=== PATIENT | female | born 1940 | race African-American/Black ===

== ENCOUNTER → 2016-07-25 | Outpatient (CLI) | payer OTHER ==
[~2016-07-25] MED LIST: ADALAT CC90 MG PO; BONIVA150 MG PO; BYSTOLIC 5 MG5 M1 PO; CARVEDILOL25 MG; CLONIDINE0.1 PO; COLACE100 MG PO; COREG CR20 MG PO; COZAAR 25 MG TA25 M1 PO; COZAAR 50 MG TA50 M1; FLOMAX0.4 MG PO; FLONASE 0.05%50 MCG NASAL; HYDRALAZINE 2525 MG PO; IRON325 PO; KAPVAY0.1 MG; LASIX 20 MG TAB20 MG PO; MIRALAX17 GM PO; NORVASC5 MG PO; PERCOCET 10-321 EACH PO; SENNA LAXATIVE8.6 MG PO; TRAMADOL 50 MG50 MG PO; VITAMINC500 PO; XARELTO10 MG PO; ZOCOR 20 MG TAB20 M1 PO
== END ==
LOC: RAD 01:46
DX: Z12.31 Encounter for screening mammogram for malignant neoplasm of breast (principal)

== ENCOUNTER 2017-01-09 16:35 | Inpatient (IN) | payer OTHER ==
[~2017-01-09] VITALS: Ht 157.5 cm; Wt 60.3 kg
--- NOTE | ~2017-01-09 | EKG ---
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: Michael LEAL : 1940 Requested By: Bernarda Murphy Order Number: [id number] MD: Hima Tavera Measurements Intervals [place] Rate: 73 P: 51 CT: 199 QRS: 31 QRSD: 104 T: 18 QT: 394 QTc: 435 Interpretive Statements Sinus rhythm Left atrial enlargement Compared to ECG 10/09/2015 09:56:16 Atrial abnormality now present Sinus bradycardia no longer present ST (T wave) deviation no longer present Electronically Signed On 01-09-2017 18:43:35 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
[2017-01-09 16:37] VITALS: BP 201/117
[2017-01-09 17:11] LABS: ABSOLUTE NEUTROPHILS 5.1 thou/uL (1.4-8.2); BASOPHILS 0.5 % (0.0-2.0); EOSINOPHILS 0.5 % (0.0-3.0); HEMATOCRIT 37.8 % (37.0-47.0); HEMOGLOBIN 12.9 gm/dL (12.0-15.0); LYMPHOCYTES 12.6 % (24.0-44.0); MCH 29.9 pg (26.0-34.0); MCV 87.7 fL (80.0-100.0); MONOCYTES 7.2 % (1.0-8.0); PLATELET COUNT 312 thou/uL (150-400); POLYS 79.2 % (36.0-66.0); RDW 14.2 % (10.5-14.5); WBC 6.4 thou/uL (4.0-11.0)
[2017-01-09 17:13] LABS: CALCIUM 9.5 mg/dL (8.5-10.1); MANUAL DIFF NO; POTASSIUM 4.2 mmol/L (3.5-5.1)
[2017-01-09 17:23] LABS: ALBUMIN 4.2 g/dL (3.4-5.0); TOTAL BILIRUBIN 0.6 mg/dL (<0.1-1.0); TOTAL PROTEIN 7.5 g/dL (6.4-8.2)
[2017-01-09 17:54] LABS: URINE BILIRUBIN NEGATIVE (Negative); URINE BLOOD NEGATIVE (Negative); URINE COLOR YELLOW; URINE GLUCOSE-RANDOM* NEGATIVE (Negative); URINE KETONES NEGATIVE (Negative); URINE NITRITE NEGATIVE (Negative); URINE PROTEIN (DIPSTICK) NEGATIVE (Negative); URINE UROBILINOGEN 0.2 E.U./dl (0.2-1.0)
[2017-01-09 19:40] VITALS: BP 141/80
[2017-01-09 19:57] VITALS: BP 118/79
[2017-01-09 23:45] VITALS: BP 140/77
[2017-01-10 03:50] VITALS: BP 130/69
[2017-01-10 06:15] LABS: CALCIUM 8.3 mg/dL (8.5-10.1); CREATININE 0.9 mg/dL (0.6-1.0); POTASSIUM 3.7 mmol/L (3.5-5.1)
[2017-01-10 06:19] LABS: PHOSPHORUS 3.5 mg/dL (2.5-4.9)
[2017-01-10 07:18] VITALS: BP 178/89
[2017-01-10 09:46] VITALS: BP 108/79
[2017-01-10 16:04] VITALS: BP 156/70
[2017-01-10 20:00] VITALS: BP 193/88
[2017-01-10 22:00] VITALS: BP 171/66
[2017-01-11] VITALS: BP 171/83
[2017-01-11 04:00] VITALS: BP 180/84
[2017-01-11 08:06] VITALS: BP 171/65
[2017-01-11 10:45] VITALS: BP 162/54
[2017-01-11 10:50] VITALS: BP 171/65
[2017-01-11 11:31] VITALS: BP 171/65
== END 2017-01-11 11:35 | disposition home or self-care (01) | DRG 304 ==
LOC: ER 16:35 → EROBS 18:08 → 3W 19:45
PROVIDERS: Hospitalist; Physician Assistant
DX: I16.0 Hypertensive urgency (principal); G93.40 Encephalopathy, unspecified; E87.1 Hypo-osmolality and hyponatremia; I10 Essential (primary) hypertension; Z96.651 Presence of right artificial knee joint; T50.0X5A Adverse effect of mineralocorticoids and their antagonists, initial encounter; Z79.899 Other long term (current) drug therapy; Z88.8 Allergy status to other drugs, medicaments and biological substances; Z98.42 Cataract extraction status, left eye; Z98.41 Cataract extraction status, right eye; Y92.89 Other specified places as the place of occurrence of the external cause
CPT/HCPCS: 10080

== ENCOUNTER → 2018-12-17 | Outpatient (CLI) | payer OTHER ==
[~2018-12-17] MED LIST changes: +ASPIR 8181 MG PO
== END ==
LOC: RAD 01:49
DX: Z12.31 Encounter for screening mammogram for malignant neoplasm of breast (principal)

== ENCOUNTER → 2020-02-15 | Outpatient (CLI) | payer OTHER | LOC: BC 12:49 | DX: Z12.31 Encounter for screening mammogram for malignant neoplasm of breast (principal) ==